=== PATIENT | male | born 1955 ===

== ENCOUNTER 2017-03-01 10:15 | Emergency (ER) | payer OTHER ==
[2017-03-01 10:59] VITALS: BP 120/65
--- NOTE | 2017-03-01 11:31 | UC ---
Skin Complaint HPI - HPI Summary HPI Summary: Right latisimus area abcess. He says he has had these prior but no known hx of MRSA. No fevers or chills. No known Dm. - History of Current Complaint Chief Complaint: UCSkin Time Seen by Provider: 03/01/17 11:24 Stated Complaint: SKIN COMPLAINT Hx Obtained From: Patient Onset/Duration: Gradual Onset, Lasting Days Skin Exposure Onset/Duration: Days Ago Timing: Constant Onset Severity: Moderate Current Severity: Moderate Location: Discrete Character: Swelling, Redness, Raised, Painful Aggravating Factor(s): Touch Alleviating Factor(s): Nothing Associated Signs & Symptoms: Negative: Nausea, Vomiting, Numbness, Diaphoresis, Weakness, Fever, Chills, Cough, Wheezing, Chest Pain, Hoarseness, Rash, Syncope , Drainage, Bruising, Tenderness - Allergy/Home Medications Allergies/Adverse Reactions: Allergies Allergy/AdvReac Type Severity Reaction Status Date / Time No Known Allergies Allergy Verified 03/01/17 10:59 Review of Systems Skin: Other - abscess. All Other Systems Reviewed And Are Negative: Yes PMH/Surg Hx/FS Hx/Imm Hx Previously Healthy: No - prior abscess. Other History Of: Negative For: HIV, Hepatitis B, Hepatitis C, Anticoagulant Therapy - Surgical History Surgical History: None - Family History Known Family History: Negative: Cardiac Disease, Hypertension - Social History Occupation: Disabled Alcohol Use: None Substance Use Type: None Smoking Status (MU): Former Smoker - Immunization History Most Recent Tetanus Shot: does not know Physical Exam Triage Information Reviewed: Yes Appearance: Well-Appearing, No Pain Distress, Well-Nourished Vital Signs: Initial Vital Signs Temp 98.5 F 03/01/17 10:53 Pulse 55 03/01/17 10:53 Resp 16 03/01/17 10:53 BP 120/65 03/01/17 10:53 Pulse Ox 100 03/01/17 10:53 Vital Signs Reviewed: Yes Eyes: Positive: Conjunctiva Clear ENT: Positive: Normal ENT inspection Neck exam: Normal Neck: Positive: Supple, Nontender, No Lymphadenopathy Respiratory: Positive: Lungs clear, Normal breath sounds, No respiratory distress, No accessory muscle use, Respiratory distress Cardiovascular: Positive: No Murmur, Pulses Normal, Brisk Capillary Refill Abdomen Description: Positive: Nontender, No Organomegaly, Soft. Negative: Distended, Guarding Musculoskeletal: Positive: Strength Intact, ROM Intact, No Edema Neurological: Positive: Alert, Muscle Tone Normal. Negative: Fatigued Psychological: Positive: Age Appropriate Behavior Skin Exam: Other - Right Latissimus area oval sized fluctant swollen and red area pointing and abscess. No streaking. Laceration Repair - Laceration Repair 1 Contamination/FB Removal: Abscess I&D right latissimus area. Aread prepped and drapped in sterile fashion. 2% lidocaine 3ml. 11 blade 0.5 cm incision. copius purulent drainage. Loculation broken up. Packing with 1/4 inch packing. Dressing applied. Course/Dx - Differential Diagnoses - Skin Complaint Differential Diagnoses: Abscess - Diagnoses Provider Diagnoses: abscess Discharge - Discharge Plan Condition: Good Disposition: HOME Prescriptions: Sulfamethox/Trimethoprim DS* [Bactrim DS 800/160 TAB*] 2 tab PO BID #40 tab Patient Education Materials: Abscess (ED) Referrals: Chelita Swain MD [Primary Care Provider] - 2 Days Additional Instructions: warm pack several times a day.
[2017-03-01] MEDS ORDERED: Lidocaine 2% 10 ML* VIAL INJ ONE (11:32)
[2017-03-01] MEDS ORDERED: Lidocaine 2% PF * 5 ML VIAL ONE (11:33)
--- NOTE | 2017-03-01 19:41 | ED ---
Progress - Progress Note Progress Note: 03/01/17 mrsa/staph (+), call patient.
== END 2017-03-01 12:01 | disposition home or self-care (01) ==
LOC: UCCORT 10:15
DX: L02.413 Cutaneous abscess of right upper limb (principal); B95.62 Methicillin resistant Staphylococcus aureus infection as the cause of diseases classified elsewhere; Z87.891 Personal history of nicotine dependence
CPT/HCPCS: 10060; 87070; 87077; 87186; 87205; 87640; 87641; 99212; G0463

== ENCOUNTER 2017-08-25 19:58 | Emergency (ER) | payer OTHER ==
[2017-08-25 20:14] VITALS: BP 136/60
--- NOTE | 2017-08-25 20:26 | UC ---
Skin Complaint HPI - HPI Summary HPI Summary: Patient states that he popped a pimple on his right thigh 2 days ago. Now the area is very red and swollen and painful. He states he is able to squeeze pus out of it. He denies any associated joint pain, fever and history of MRSA. One of his friends at the bedside is a medical pathologist and she notes upon seeing this, she made him come in to have it checked. They report it is important he get this checked because he is scheduled to have another colonoscopy in [place] this Monday. He recently had a colonoscopy and was just told yesterday that he has colon cancer. The procedure Monday is to determine the extent of his cancer. - History of Current Complaint Chief Complaint: UCSkin Time Seen by Provider: 08/25/17 20:16 Stated Complaint: SKIN ISSUE L LEG Hx Obtained From: Patient, Family/Manager Combination Onset/Duration: Gradual Onset Timing: Constant Pain Intensity: 0 Alleviating Factor(s): Nothing Associated Signs & Symptoms: Positive: Rash. Negative: Fever Related History: Diabetes - Allergy/Home Medications Allergies/Adverse Reactions: Allergies Allergy/AdvReac Type Severity Reaction Status Date / Time No Known Allergies Allergy Verified 08/25/17 20:07 Home Medications: Home Medications Atorvastatin* [Lipitor*] 10 mg PO DAILY 08/25/17 [History Confirmed 08/25/17] Cholecalciferol (Vitamin D3) [Vitamin D3] 1,000 unit PO DAILY 08/25/17 [History Confirmed 08/25/17] Levothyroxine TAB* [Synthroid TAB*] 50 mcg PO DAILY 08/25/17 [History Confirmed 08/25/17] Metformin HCl [Metformin HCl ER] 750 mg PO QPM 08/25/17 [History Confirmed 08/25] Review of Systems Constitutional: Negative Skin: Rash - r THIGH Eyes: Negative ENT: Negative Respiratory: Negative Cardiovascular: Negative Gastrointestinal: Negative Genitourinary: Negative Motor: Negative Neurovascular: Negative Musculoskeletal: Negative Neurological: Negative Psychological: Negative Is Patient Immunocompromised?: No All Other Systems Reviewed And Are Negative: Yes PMH/Surg Hx/FS Hx/Imm Hx - Additional Past Medical History Additional PMH: Diagnosed with colon CA yesterday Endocrine History: Diabetes, Thyroid Disease, Dyslipidemia Other History Of: Negative For: HIV, Hepatitis B, Hepatitis C, Anticoagulant Therapy - Surgical History Surgical History: None - Family History Known Family History: Negative: Cardiac Disease, Hypertension - Social History Lives: With Family Alcohol Use: None Substance Use Type: None Smoking Status (MU): Former Smoker - Immunization History Most Recent Tetanus Shot: does not know Vaccination Up to Date: Yes Physical Exam Triage Information Reviewed: Yes Appearance: Well-Appearing Vital Signs: Initial Vital Signs Temp 99.4 F 08/25/17 20:08 Pulse 87 08/25/17 20:08 Resp 22 08/25/17 20:08 BP 136/60 08/25/17 20:08 Pulse Ox 99 08/25/17 20:08 Eyes: Positive: Conjunctiva Clear ENT: Positive: Normal ENT inspection Neck: Positive: Supple, Nontender, No Lymphadenopathy Respiratory: Positive: Lungs clear, Normal breath sounds Cardiovascular: Positive: RRR, No Murmur Abdomen Description: Positive: Nontender, No Organomegaly, Soft. Negative: Distended, Guarding Bowel Sounds: Positive: Present Musculoskeletal: Positive: ROM Intact Neurological: Positive: Alert Psychological: Positive: Age Appropriate Behavior Skin Exam: Normal, Other - Right distal thigh has a 3 cm area of erythema with mild induration. In the center, it is fluctuant. Gentle pressure on the edges expresses pus from the center of this rash and a culture was obtained. There is no streaking or inguinal adenopathy. There is no joint pain with passive or active range of motion of the right knee. Diagnostics - Laboratory Diagnostic Studies Completed/Ordered: wound culture pending Course/Dx - Course Course Of Treatment: PROCEDURE: time out done. site prep betadine. local with 1 ml 1% lidocaine. tip of #11 blade used to make a superficial stab incision, small amount of puss drained. blunt forcep used to break up loculation. irrigated with sterile nacl, pack with gauze then covered with bacitracin and non occlusive bandage. minimalbleeding. pt tolerated well. sterile technique used for procedure. pt, family and friend are refusing any type of po medication/antibiotics citing "we can not reschedule the procedure in [place] on monday". i explaine the risk for worsening infection; however, pt will not change his mind. he is a&ox3 and able to make that decision thus I must respect his wish. I will tx with IM rocephine and return tomorrow for a recheck. in the meantime if he gets a fever or any worsening, need to go directly to the ER was stressed and all agreed to that. - Diagnoses Provider Diagnoses: Abscess R distal thigh Discharge - Sign-Out/Discharge Documenting (check all that apply): Discharge/Admit/Transfer - Discharge Plan Condition: Stable Disposition: HOME Patient Education Materials: Abscess (ED) Referrals: Isaiah Swain MD [Primary Care Provider] - 2 Days Additional Instructions: RETURN HERE TOMORROW FOR A RECHECK. GO TO THE ER IMMEDIATELY FOR ANY FEVER OR WORSENING. BE SURE TO MONITOR YOUR BLOOD SUGAR WITH THIS INFECTION AND SEEK FOLLOW UP FOR ANY EXTREME VALUES. - Billing Disposition and Condition Condition: STABLE Disposition: Home
[2017-08-25] MEDS ORDERED: Lidocaine 1%* 5 ML VIAL INJ ONE (20:35)
[2017-08-25] MEDS ORDERED: cefTRIAXone VIAL(*) 1,000 MG VIAL IM ONE (20:59)
--- NOTE | 2017-08-26 19:28 | UC ---
- Progress Note Progress Note: Abscess culture positive for MRSA. Bactrim sent in. Pt needs to be called as having MRSA. Discharge - Sign-Out/Discharge Documenting (check all that apply): Discharge/Admit/Transfer - Discharge Plan Condition: Stable Disposition: HOME Prescriptions: Sulfamethox/Trimethoprim DS* [Bactrim DS 800/160 TAB*] 1 tab PO BID #14 tab Patient Education Materials: Abscess (ED) Referrals: Isaiah Swain MD [Primary Care Provider] - 2 Days Additional Instructions: RETURN HERE TOMORROW FOR A RECHECK. GO TO THE ER IMMEDIATELY FOR ANY FEVER OR WORSENING. BE SURE TO MONITOR YOUR BLOOD SUGAR WITH THIS INFECTION AND SEEK FOLLOW UP FOR ANY EXTREME VALUES. - Billing Disposition and Condition Condition: STABLE Disposition: Home
== END 2017-08-25 21:30 | disposition home or self-care (01) ==
LOC: UCCORT 19:58
DX: L02.415 Cutaneous abscess of right lower limb (principal); B95.62 Methicillin resistant Staphylococcus aureus infection as the cause of diseases classified elsewhere; E11.9 Type 2 diabetes mellitus without complications; Z79.84 Long term (current) use of oral hypoglycemic drugs; Z87.891 Personal history of nicotine dependence
CPT/HCPCS: 10060; 87070; 87077; 87186; 87205; 87640; 87641; 96372; 99212; G0463; J0696